=== PATIENT | male | born 1980 | race Caucasian/White ===

== ENCOUNTER 2019-03-07 13:50 | Emergency (ER) | payer OTHER ==
[2019-03-07 14:01] VITALS: BP 141/78
[2019-03-07] MEDS ORDERED: DEXAMETHASONE 10 MG/ML VIAL PO STA (14:26)
[2019-03-07] MEDS ORDERED: CHERRY SYRUP 10 ML UDC PO ONE (14:26)
--- NOTE | 2019-03-07 14:28 | ED Physician Documentation ---
PD HPI HEENT - Stated complaint Stated Complaint: FEVER,SORE THROAT - Chief complaint Chief Complaint: Fever - History obtained from History obtained from: Patient, Family - History of Present Illness Timing - onset: Last night Timing - duration: Days (1) Timing - details: Gradual onset, Still present Location: Nose, Throat Improves: Medication Worsens: Swalllowing Associated symptoms: Fever, Congestion, Rhinorrhea, Swollen nodes, Headache Similar symptoms before: Diagnosis (strep) Recently seen: Not recently seen - Additional information Additional information: 38-year-old active [employer] male has developed a sore throat last night. He has a fever he does not have much in way of a cough he has a lot of nasal congestion and swelling to his face. 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 He has had strep previously with similar symptoms. Review of Systems Constitutional: reports: Fever, Chills, Myalgias, Fatigue Eyes: denies: Decreased vision Ears: denies: Ear pain Nose: reports: Rhinorrhea / runny nose, Congestion Throat: reports: Sore throat Cardiac: denies: Chest pain / pressure, Palpitations Respiratory: denies: Dyspnea, Cough GI: denies: Abdominal Pain, Nausea, Vomiting : denies: Dysuria, Frequency PD PAST MEDICAL HISTORY - Past Medical History Past Medical History: No - Past Surgical History Past Surgical History: Yes - Present Medications Home Medications: Ambulatory Orders Medication Instructions Recorded Confirmed Ciprofloxacin HCl [Cipro] 500 mg PO BID 10 Days tablet 06/11/15 Azithromycin [Zithromax] 200 mg PO DAILY #15 ml 03/07/19 - Allergies Allergies/Adverse Reactions: Allergies Allergy/AdvReac Type Severity Reaction Status Date / Time No Known Drug Allergies Allergy Verified 06/11/15 19:15 - Social History Does the pt smoke?: No Smoking Status: Former smoker Does the pt drink ETOH?: No Does the pt have substance abuse?: No - Immunizations Immunizations are current?: Yes PD ED PE NORMAL - Vitals Vital signs reviewed: Yes (tachy and hypertensive ) - General General: Alert and oriented X 3, No acute distress, Well developed/nourished - HEENT HEENT: Atraumatic, PERRL, EOMI, Other (Both TMs are flushed with retained landmarks the pharynx is with 2+ exudative cryptic tonsils.) - Neck Neck: Supple, no meningeal sign, No bony TTP - Cardiac Cardiac: RRR, No murmur - Respiratory Respiratory: No respiratory distress, Clear bilaterally - Derm Derm: Normal color, Warm and dry - Extremities Extremities: No deformity, No edema - Neuro Neuro: Alert and oriented X 3, returned goods sorter 2-12 intact, No motor deficit, No sensory deficit, Normal speech Eye Opening: Spontaneous Motor: Obeys Commands Verbal: Oriented GCS Score: 15 - Psych Psych: Normal mood, Normal affect Results - Vitals Vitals: Vital Signs - 24 hr 03/07/19 14:00 Temperature 37.3 C Heart Rate 104 H Respiratory 17 Rate Blood Pressure 141/78 H O2 Saturation 97 Oxygen O2 Source Room air - Labs Labs: Laboratory Tests 03/07/19 14:07 Influenza A (Rapid) Negative Influenza B (Rapid) Negative PD MEDICAL DECISION MAKING - ED course Complexity details: reviewed results, re-evaluated patient, considered differential, d/w patient, d/w family ED course: 38-year-old male with cryptic exudative tonsillitis is a negative influenza swab he refused a strep swab. We have administered dexamethasone 10 mg orally and we will place him on some oral antibiotic he is asking for a liquid form. Departure - Departure Disposition: 01 Home, Self Care Clinical Impression: Acute tonsillitis Qualifiers: Pharyngitis/tonsillitis etiology: unspecified etiology Qualified Code(s): J03.90 - Acute tonsillitis, unspecified Condition: Stable Instructions: ED Tonsillitis Follow-Up: [facility] [Provider Group] Prescriptions: Azithromycin [Zithromax] 200 mg PO DAILY #15 ml
== END 2019-03-07 14:43 | disposition home or self-care (01) ==
LOC: ED 13:50
DX: J03.90 Acute tonsillitis, unspecified (principal); Z87.891 Personal history of nicotine dependence
CPT/HCPCS: 87275; 87276; 99283; 99284; A9270; 87430

== ENCOUNTER 2019-03-09 16:02 | Emergency (ER) | payer OTHER ==
[2019-03-09] MEDS ORDERED: DEXAMETHASONE 10 MG/ML VIAL PO STA (17:04)
--- NOTE | 2019-03-09 17:07 | ED Physician Documentation ---
History of Present Illness - Stated complaint Stated Complaint: THROAT PX - Chief complaint Chief Complaint: Heent - History obtained from History obtained from: Patient, Family - History of Present Illness Timing: How many days ago (3) Pain level max: 8 Pain level now: 6 - Additonal information Additional information: 38-year-old male presents to the emergency department after being treated for strep pharyngitis 2 days ago. States that his pain is worsening. Difficulty swallowing. Continuing to have fevers at home. Worse with swallowing, better with rest. Review of Systems Constitutional: reports: Fever, Chills Nose: denies: Rhinorrhea / runny nose, Congestion Throat: reports: Sore throat Respiratory: denies: Cough GI: denies: Nausea, Vomiting Skin: denies: Rash Musculoskeletal: denies: Neck pain, Back pain Neurologic: denies: Headache PD PAST MEDICAL HISTORY - Past Medical History Past Medical History: No - Past Surgical History Past Surgical History: Yes General: Other - Present Medications Home Medications: Ambulatory Orders Medication Instructions Recorded Confirmed Ciprofloxacin HCl [Cipro] 500 mg PO BID 10 Days tablet 06/11/15 Azithromycin [Zithromax] 200 mg PO DAILY #15 ml 03/07/19 Ibuprofen [Motrin] 800 mg PO Q8H PRN #30 tablet 03/09/19 Penicillin V Potassium 500 mg PO Q6HR #40 tablet 03/09/19 predniSONE [Prednisone] 40 mg PO DAILY #10 tablet 03/09/19 - Allergies Allergies/Adverse Reactions: Allergies Allergy/AdvReac Type Severity Reaction Status Date / Time No Known Drug Allergies Allergy Verified 03/09/19 16:12 - Social History Does the pt smoke?: No Smoking Status: Never smoker Does the pt drink ETOH?: No Does the pt have substance abuse?: No - Immunizations Immunizations are current?: Yes PD ED PE NORMAL - Vitals Vital signs reviewed: Yes - General General: Alert and oriented X 3, No acute distress, Well developed/nourished - HEENT HEENT: PERRL, Ears normal, Moist mucous membranes, Other (Posterior pharyngeal erythema with tonsillar exudates. Uvula midline. Normal phonation. No trismus.) - Neck Neck: Supple, no meningeal sign, Other (Shotty anterior lymphadenopathy) - Cardiac Cardiac: RRR - Respiratory Respiratory: No respiratory distress, Clear bilaterally - Abdomen Abdomen: Soft, Non tender, Non distended - Derm Derm: Warm and dry, No rash - Neuro Neuro: Alert and oriented X 3 - Psych Psych: Normal mood, Normal affect Results - Vitals Vitals: Vital Signs - 24 hr 03/09/19 03/09/19 16:07 17:28 Temperature 37.0 C Heart Rate 69 80 Respiratory 16 18 Rate Blood Pressure 129/79 132/84 H O2 Saturation 97 97 Oxygen O2 Source Room air PD MEDICAL DECISION MAKING - ED course Complexity details: reviewed old records, considered differential, d/w patient ED course: Patient with what appears to be strep pharyngitis. Will change him from a zithromycin to penicillin. Given dexamethasone here. Will place on steroids and anti-inflammatories for home as well. Patient is well-appearing, nontoxic. Afebrile. No hypoxia. Does not appear significantly dehydrated. Patient and family counseled regarding signs and symptoms for which I believe and urgent re- evaluation would be necessary. Patient with good understanding of and agreement to plan and is comfortable going home at this time This document was made in part using voice recognition software. While efforts are made to proofread this document, sound alike and grammatical errors may occur. No peritonsillar or retropharyngeal abscess. Departure - Departure Disposition: 01 Home, Self Care Clinical Impression: Strep pharyngitis Condition: Good Instructions: ED Strep Pharyngitis Conf Follow-Up: your,doctor in 1 week if not better [Other] - Within 1 week Prescriptions: Penicillin V Potassium 500 mg PO Q6HR #40 tablet Ibuprofen [Motrin] 800 mg PO Q8H PRN #30 tablet PRN Reason: PAIN &/OR FEVER predniSONE [Prednisone] 40 mg PO DAILY #10 tablet Comments: You can stop the azithromycin, will change your antibiotic. Use the remainder the medications as prescribed. Cold foods such as popsicles will help to decrease the swelling as well. Return if you worsen. Discharge Date/Time: 03/09/19 17:29
[2019-03-09 17:29] VITALS: BP 132/84
== END 2019-03-09 17:29 | disposition home or self-care (01) ==
LOC: ED 16:02
DX: J02.0 Streptococcal pharyngitis (principal)
CPT/HCPCS: 99283; 99284

== ENCOUNTER 2021-12-10 13:08 | Outpatient (CLI) | payer OTHER ==
--- NOTE | 2021-12-10 17:21 | MRI Report ---
PROCEDURE: WRIST WO - LT INDICATIONS: PAIN IN LEFT WRIST TECHNIQUE: Noncontrast coronal proton density fast spin echo and T2 fast spin echo with fat saturation; coronal 3-D gradient echo, axial T1 spin echo and T2 fast spin echo with fat saturation, sagittal T1 spin ech o through the wrist. COMPARISON: Wrist radiograph dated 06/06/2021. FINDINGS: Image quality: Diagnostic. Slight patient motion is noted. Bones and cartilage: The carpal bones are normally aligned. No bone marrow contusions or fractures. No evidence for avascular necrosis. Overlying cartilage surfaces appear normal. Carpal ligaments: The scapholunate and lunotriquetral ligaments appear intact. In the absence of in tra-articular contrast, the extrinsic carpal ligaments are not well identified. On sagittal images, the pisohamate ligament appears intact. Triangular fibrocartilage complex: The triangular fibrocartilage appears intact. The adjacent menis nathaly homolog appears normal in the absence of intra-articular contrast. The extensor carpi ulnaris te ndon is normal in location and morphology. Tendons and soft tissues: The carpal tunnel structures appear normal, including the median nerve. T he ulnar nerve appears normal within Guyon's canal. Small amount of fluid distending first and second extensor compartments are seen. No soft tissue ganglion cysts. IMPRESSION: 1. No wrist fracture or dislocation. No marrow edema. No evidence of avascular necrosis. 2. Intrinsic and extrinsic wrist ligaments are intact. 3. Finding may represent low-grade tenosynovitis involving first and second extensor compartments at the level of distal radius. Rest of the extensor and flexor tendons are intact. 4. Triangular fibrocartilage complex is intact. Reviewed by: Shivam Herndon MD on 12/10/2021 5:19 PM PDT Approved by: Shivam Herndon MD on 12/10/2021 5:19 PM PDT Station ID: [id number]
== END 2021-12-10 13:09 | disposition home or self-care (01) ==
LOC: DI 13:08
DX: M25.532 Pain in left wrist (principal)

== ENCOUNTER 2022-04-15 08:33 | Outpatient (CLI) | payer OTHER ==
--- NOTE | 2022-04-15 13:02 | MRI Report ---
PROCEDURE: KNEE WO - LT INDICATIONS: BILATERAL KNEE PAIN. NO PRIORS. TECHNIQUE: Noncontrast sagittal PD fast spin echo and T2 fast spin echo with fat saturation, sagittal 3-D spoile d GE with fat saturation; coronal T1 spin echo and PD fast spin echo with fat saturation, and axial P D fast spin echo with fat saturation through the knee. COMPARISON: None. FINDINGS: Image quality: Excellent. Anterior cruciate ligament: Intact. Posterior cruciate ligament: Intact. Medial collateral ligament: Thickening the proximal medial collateral ligament without surrounding e pawel is most likely secondary to a remote prior low-grade sprain. Lateral collateral ligament: Intact. Medial meniscus: Intact. Lateral meniscus: Intact. Medial and lateral tendons: The semimembranosus tendon insertions appear intact. Visualized portion s of the pes anserinus tendons appear normal. The popliteus tendon appears intact. Iliotibial band appears normal. Anterior structures: A small enthesophyte is seen at the distal quadriceps tendon insertion and ther e is mild quadriceps tendinosis and mild patellar tendinosis. No patellar subluxation. No femoral tr ochlear dysplasia or ventral trochlear prominence. Mild focal hyperintense signal is seen in the supe rolateral aspect of Hoffa's fat pad. The medial patellar plica is noted without significant thickenin g. Bones: No acute trabecular bone injury or fracture. Medial femorotibial cartilage: Moderate generalized partial-thickness cartilage thinning throughout the weightbearing portion of the medial femorotibial compartment. Lateral femorotibial cartilage: Mild focal cartilage irregularity is seen at the posterior weightbea ring portion of the lateral tibial plateau. Patellofemoral cartilage: Mild partial thickness cartilage irregularity is seen at the median ridge of the patella. Soft tissues: There is a small joint effusion. There is a trace medial popliteal cyst. The musculat ure surrounding the knee is normal in bulk. IMPRESSION: 1.Remote prior low-grade sprain of the proximal medial collateral ligament. 2.Mild distal quadriceps and patellar tendinosis. 3.Mild focal edema at the superolateral aspect of the infrapatellar fat pad is nonspecific but could indicate lateral femoral condyle-patellar tendon friction syndrome. 4.Grade 2-3 cartilage thinning in the weightbearing portion of the medial femorotibial compartment. M ild grade 2 chondromalacia in the lateral and anterior compartments. 5.Small joint effusion. Reviewed by: Ti Vann MD on 04/15/2022 1:01 PM PST Approved by: Ti Vann MD on 04/15/2022 1:01 PM PST Station ID: [id number]
--- NOTE | 2022-04-15 13:02 | MRI Report ---
PROCEDURE: KNEE WO - RT INDICATIONS: BILATERAL KNEE PAIN TECHNIQUE: Noncontrast sagittal PD fast spin echo and T2 fast spin echo with fat saturation, sagittal 3-D spoile d GE with fat saturation; coronal T1 spin echo and PD fast spin echo with fat saturation, and axial P D fast spin echo with fat saturation through the knee. COMPARISON: None. FINDINGS: Image quality: Excellent. Anterior cruciate ligament: Intact. Posterior cruciate ligament: Intact. Medial collateral ligament: Thickening the proximal medial collateral ligament without surrounding e pawel is most likely secondary to a remote prior low-grade sprain. Lateral collateral ligament: Intact. Medial meniscus: Intact. Lateral meniscus: Intact. Medial and lateral tendons: The semimembranosus tendon insertions appear intact. Visualized portion s of the pes anserinus tendons appear normal. The popliteus tendon appears intact. Iliotibial band appears normal. Anterior structures: There is mild distal quadriceps tendinosis and patellar tendinosis. No patellar subluxation. No femoral trochlear dysplasia or ventral trochlear prominence. Very mild edema is see n at the superolateral aspect of the infrapatellar fat pad. Bones: No acute trabecular bone injury or fracture. Medial femorotibial cartilage: Mild partial thickness cartilage thinning irregularity in the weightb earing portion of the medial femorotibial compartment. Lateral femorotibial cartilage: High-grade versus full-thickness cartilage loss is seen at the far p osterior portion of the lateral femoral condyle measuring approximately 13 x 6 mm with mild subchondr al edema. Deep cartilage fissuring is seen in the central portion of the lateral tibial plateau. Patellofemoral cartilage: Mild partial thickness cartilage irregularity of the lateral femoral troch hayder. Soft tissues: There is a small joint effusion. There is a trace medial popliteal cyst. The musculat ure surrounding the knee is normal in bulk. IMPRESSION: 1.Remote prior low-grade sprain of the proximal medial collateral ligament. 2.Mild distal quadriceps tendinosis and patellar tendinosis. 3.Mild focal edema at the superolateral aspect of the infrapatellar fat pad is nonspecific but can be seen in setting of lateral femoral condyle-patellar tendon friction syndrome. 4.Focal grade 3-4 cartilage defect at the far posterior portion of the lateral femoral condyle with s ubchondral edema. There is mild grade II chondromalacia in the medial and anterior compartments. 5.Small joint effusion. Reviewed by: Ti Vann MD on 04/15/2022 1:00 PM PST Approved by: Ti Vann MD on 04/15/2022 1:00 PM PST Station ID: [id number]
== END 2022-04-15 08:34 | disposition home or self-care (01) ==
LOC: DI 08:33
DX: S83.411A Sprain of medial collateral ligament of right knee, initial encounter (principal); M67.863 Other specified disorders of tendon, right knee; M94.261 Chondromalacia, right knee; M25.461 Effusion, right knee; S83.412A Sprain of medial collateral ligament of left knee, initial encounter; M67.864 Other specified disorders of tendon, left knee; M94.262 Chondromalacia, left knee; M25.462 Effusion, left knee

== ENCOUNTER 2022-06-14 12:57 | Outpatient (CLI) | payer OTHER ==
--- NOTE | 2022-06-14 13:40 | Sleep Patient Instructions ---
Sleep Center Visit Summary - Patient Visit Information Reason for Visit: Initial consult to establish care for CPAP therapy. - Patient Instructions Additional Instructions: You will continue with CPAP therapy with pressure set at 6-16 cmH2O. A supply prescription will be updated with your DME. We encourage you to continue to try to lose weight. Please follow up with the sleep care office in 1 year. A reminder will be sent to you next year. - Clinic Information Contact: [facility] [address] [place] [id number] [email or web address] T: [phone]
[2022-06-14 13:45] VITALS: BP 98/64
--- NOTE | 2022-06-14 13:45 | SLEEP CARE CONSULTATION ---
Information from patient questionnaire entered by Agatha Terry. I have reviewed and concur with the information entered by Agatha Terry. This document represents the service I personally performed and the decisions made by me, Teresa Beltran ARNP. History of Present Illness Service Date and Time: 06/14/2022 1257 Reason for Visit: New patient, Previously diagnosed sleep apnea, sleep apnea on CPAP therapy Chief Complaint: reports: Unrefreshed sleep, Snoring, Fatigue, Frequent awakenings at night Date of Onset: 3YRS Usual bedtime: 9PM Time it takes to fall asleep: NO CPAP 1HR WITH CPAP 10-15MIN Snores at night: Yes Observed to quit breathing while asleep: Yes Sleeps alone due to snoring: No Number of times waking at night: W/OUT CPAP 5-6 WITH CPAP 1-2 Reasons for waking at night: reports: Other (UNKNOWN) Toss, Turn, or Twitch while sleeping: Yes Recalls having dreams: Yes Usually gets out of bed at: 4-5AM Feels refreshed in the morning: No Morning headache: No Sleepy or fatigued during the day: Yes Ever fallen asleep while driving: No Takes day naps: Yes Prior sleep studies: Yes Additional HPI information: EDUARDA MENA was previously diagnosed to have mild, AHI 10, obstructive sleep apnea-hypopnea syndrome as seen on a sleep study dated 05/24/2020 through [facility] and comes in today to establish care for CPAP therapy. - Parasomnia Symptoms Ever been unable to move upon waking from sleep: No Walks in sleep: No Talks in sleep: Yes Ever acted out dreams in sleep: No Ever felt weak in the knees when startled or emotional: No Bothered by creepy, crawly, restless sensations in legs: No Problems with memory or concentration: Yes CPAP Compliance Data - Data Reviewed with Patient Average duration of nightly device use: 7 hours 1 minute Compliance rate %: 90 (81/90 days used) Current pressure setting (cmH2O): 6-16 Average residual AHI: 2.6 Central apnea: 1.6 Obstructive apnea: 0.7 Average large leak: 0.5 L/min Compliance data discussion: He has an Airsense 10, s/u 06/2020. He gets his supplies from [employer] without any issues. He is using a full face mask ResMed Airfit F20 with medium cushion. He has a back up mask. Subjective Missed days of use due to: reports: travel, other (just did not want to wear it for a night) Patient concerns: denies: aerophagia, mask discomfort, air blowing in eyes, mask leak noise, condensation in mask/hose, nasal congestion, dry mouth, nose, throat, epistaxis Observed to snore while using device: No Current pressure setting perceived as: comfortable On therapy, patient: reports: sleeping better, awakening more refreshed, being more awake and alert during the day, more rested overall. denies: drowsiness while driving Initial [place] Sleepiness Scale score: 6 (06/14/22) Past Medical History Past Medical History: reports: Other (pain in knees and wrists) Social History The patient's occupation is a AM. Patient is and lives in [place]. Have you smoked in the past 12 months: No Years of smokin Quit date: 2017 Alcohol use: No Caffeine use: Yes Caffeine amount and frequency: 1 COFFEE EVERY COUPLE DAYS Family History Family history of sleep disordered breathing: Yes Family Hx Sleep Apnea: Mother: Snoring, Grandparent: Snoring Allergies and Home Medications Known drug allergies: No Drug allergies reviewed: Yes Home medication list reviewed: Yes Allergy and home medication list: Allergies No Known Drug Allergies Allergy (Verified 06/13/22 13:33) Medications: Mobic, daily Review of Systems Weight gain over past 5 years: 25, in last 3 yrs Weight loss over past 5 years: 25, in last year, goal is 185 Cardiovascular: denies: high blood pressure Gastrointestinal: reports: heartburn Neurological: reports: headaches Psychiatric: denies: anxiety, depression Ear/Nose/Throat: reports: wisdom teeth removed. denies: tonsillectomy Musculoskeletal: reports: joint pain, back pain Physical Exam Vital signs obtained and entered by: AGATHA Hardin MA Blood Pressure: 98/64 (LEFT ARM) Cuff size: regular Heart Rate: 72 O2 Saturation: 97 Height: 6 ft Weight: 205 lb 9.6 oz Body Mass Index: 27.8 BMI Classification: Overweight Neck circumference: 16 Heart: regular rate and rhythm Lungs: clear bilaterally Impression and Plan 1. Obstructive Sleep Apnea-Hypopnea Syndrome, mild, with good treatment compliance and good apnea control. On CPAP therapy, the patient has better sleep quality and is more rested overall. Patient has significant improvement of their sleep apnea and is satisfied with current CPAP therapy. Patient denies problems with oral dryness, nasal congestion, epistaxis, skin irritation or aerophagia. Patient's apnea severity and rationale for treatment to reduce apnea, improve sleep quality and reduce cardiovascular and cerebrovascular events was reviewed. 2. Overweight, unspecified. Currently patients BMI is 27.8. Obesity increases the risk of apnea, CPAP pressure requirements and overall health risks especially cardiovascular and diabetes. Thus patient is advised to continue to try to lose weight. * Continue auto CPAP pressure at 6-16 cmH2O * Update supplies * Notify me if snoring with mask or feeling that the pressure is too much or too little * Attempt to lose weight * Call this office if any problems using CPAP * Return for follow up in 1 year, or sooner if concerns arise Counseling Topics: Spare mask, Weight loss health impact Visit Type: In Office Time Spent with Patient (minutes): 31 Provider Statement: I spent 100% of the Face to Face Visit with the patient with greater than 50% spent counseling the patient and coordination of care.
== END 2022-06-14 12:58 | disposition home or self-care (01) ==
LOC: SC 12:57
PROVIDERS: ATTEND Nurse Practitioner Family
DX: G47.33 Obstructive sleep apnea (adult) (pediatric) (principal); E66.3 Overweight; Z68.27 Body mass index [BMI] 27.0-27.9, adult
CPT/HCPCS: 99203; 99212

== ENCOUNTER 2023-02-11 11:16 | Outpatient (CLI) | payer OTHER ==
--- NOTE | 2023-02-11 12:26 | Sleep Patient Instructions ---
Sleep Center Visit Summary - Patient Visit Information Reason for Visit: 8 month followup - Patient Instructions Additional Instructions: You were here for follow up of CPAP therapy. You will be continued on CPAP therapy with pressure at 6-16 cmH2O. I will update your DME supply prescription. You should follow up with sleep care in 12 months. You may contact us sooner for any questions or concerns. - Clinic Information Contact: [facility] [address] [place] [id number] [email or web address] T: [phone]
--- NOTE | 2023-02-11 12:37 | SLEEP CARE CONSULTATION ---
Information from patient questionnaire entered by Agatha Terry. I have reviewed and concur with the information entered by Agatha Terry. This document represents the service I personally performed and the decisions made by me, Teresa Beltran ARNP. History of Present Illness Service Date and Time: 02/11/2023 1116 Previous diagnosis: Mild, Obstructive Sleep Apnea-Hypopnea Syndrome AHI: 10 (in 05/2020) Reason for follow up: other (8MONTHS F/U) Equipment type: CPAP (RESMED 10, s/u 06/2020) Equipment obtained from: Other ([facility]; getting supplies as needed) Mask style: Full face Mask brand: Resmed (AirFit [id number]) Backup mask available: Yes Last cushion change: couple weeks Prior sleep studies: Yes HPI additional information: EDUARDA MENA was diagnosed to have mild, AHI 10, obstructive sleep apnea- hypopnea syndrome and returned today for CPAP therapy eight month follow-up. Sleep Study - Results Prior sleep studies: Yes CPAP Compliance Data - Data Reviewed with Patient Average duration of nightly device use: 6 HRS 57 MINS Compliance rate %: 91 (06/09/22-02/06/23; 227/243 days used) Current pressure setting (cmH2O): 6-16 Average residual AHI: 2.3 Average large leak: 0.5 L/min Subjective Missed days of use due to: reports: travel Patient concerns: reports: condensation in mask/hose. denies: aerophagia, mask discomfort, air blowing in eyes, mask leak noise, nasal congestion, dry mouth, nose, throat, epistaxis Observed to snore while using device: No Current pressure setting perceived as: comfortable On therapy, patient: denies: drowsiness while driving Initial [place] Sleepiness Scale score: 6 (06/14/22) Current [place] Sleepiness Scale score: 7 (02/11/23) Allergies and Home Medications Known drug allergies: No Drug allergies reviewed: Yes Home medication list reviewed: Yes (no changes) Allergy and home medication list: Allergies No Known Drug Allergies Allergy (Verified 02/07/23 09:04) Review of Systems Review of systems same as previous: Yes (NO CHANGE) Physical Exam Vital signs obtained and entered by: GAATHA Hardin MA Blood Pressure: 111/73 (RIGHT ARM) Cuff size: regular Heart Rate: 78 O2 Saturation: 97 Height: 6 ft Weight: 232 lb Body Mass Index: 31.4 BMI Classification: Obese Impression and Plan 1. Obstructive Sleep Apnea-Hypopnea Syndrome, mild, with good treatment compliance and good apnea control. On CPAP therapy, the patient has better sleep quality and is more rested overall. He says he is having more daytime fatigue in the last 3 weeks and wanting to nap in afternoon. He feels rested when he gets up in the morning. He has also been waking up more during the night for unknown reasons. He is laying down between 9-10 pm and gets up between 4-5 AM. This has not changed in the last 7-8 months. He says he cannot remember any increased stress at home or work. He states no distress with wake ups and he is able to go right back to sleep. I reviewed sleep hygiene with him and he says he has been having more caffeine during the holidays. He states he does not drink or smoke cigarettes. He feels he gets regular exercise. I gave him a pamphlet on sleep hygiene and reviewed. He may just need to cut back on his caffeine and give it time to see if it resolves on own. He voiced understanding an agreement. Patient's apnea severity and rationale for treatment to reduce apnea, improve sleep quality and reduce cardiovascular and cerebrovascular events was reviewed. Sleep hygiene 2. Obesity, unspecified. Currently patients BMI is 31.4. Obesity increases the risk of apnea, CPAP pressure requirements and overall health risks especially cardiovascular and diabetes. Thus patient is advised to lose weight. * Continue auto CPAP pressure at 6-16 cmH2O * Update supply prescription * Notify me if snoring with mask or feeling that the pressure is too much or too little * Attempt to lose weight * Call this office if any problems using CPAP * Return for follow up in 1 year, or sooner if concerns arise Counseling Topics: Weight loss health impact Prescriptions: Device supplies Follow up with Sleep Care in: 1 year Visit Type: In Office Time Spent with Patient (minutes): 27 Provider Statement: I spent 100% of the Face to Face Visit with the patient with greater than 50% spent counseling the patient and coordination of care.
[2023-02-11 12:41] VITALS: BP 111/73; O2SAT 97
== END 2023-02-11 11:17 | disposition home or self-care (01) ==
LOC: SC 11:16
PROVIDERS: ATTEND Nurse Practitioner Family
DX: G47.33 Obstructive sleep apnea (adult) (pediatric) (principal); E66.9 Obesity, unspecified; Z68.31 Body mass index [BMI] 31.0-31.9, adult
CPT/HCPCS: 99212; 99213